=== PATIENT | female | born 1990 | race Caucasian/White ===

== ENCOUNTER 2020-07-02 08:31 | Emergency (ER) | payer MEDICAID ==
[~2020-07-02] VITALS: Ht 157.5 cm; Wt 160.0 kg
[2020-07-02 08:36] VITALS: BP 112/75
[2020-07-02] MEDS ORDERED: diazepam 5mg tablet PO ONE (09:10)
[2020-07-02] MEDS ORDERED: ketorolac tromethamine 15mg/ml inj. IM ONE (09:10)
--- NOTE | 2020-07-02 09:18 | NUR ---
PT AMBULATED TO THE BATHROOM WITH A STEADY GAIT.
== END 2020-07-02 10:00 | disposition home or self-care (01) ==
LOC: ER 08:32
DX: M54.5 Low back pain (principal); M62.838 Other muscle spasm; G89.29 Other chronic pain; F17.200 Nicotine dependence, unspecified, uncomplicated
CPT/HCPCS: 96372; 99283; J1885

== ENCOUNTER 2020-08-27 12:31 | Emergency (ER) | payer MEDICAID ==
[~2020-08-27] VITALS: Ht 157.5 cm; Wt 75.0 kg
[2020-08-27] MEDS ORDERED: ketorolac trometh. 30mg/ml inj. IM ONE (13:05)
[2020-08-27] MEDS ORDERED: CYCL-1 PO (13:10)
[2020-08-27 13:30] VITALS: BP 122/82
== END 2020-08-27 13:23 | disposition home or self-care (01) ==
LOC: ER 12:32
DX: M54.2 Cervicalgia (principal); M25.511 Pain in right shoulder; M54.5 Low back pain; G89.29 Other chronic pain; Z88.2 Allergy status to sulfonamides; Z79.899 Other long term (current) drug therapy
CPT/HCPCS: 96372; 99283; J1885

== ENCOUNTER 2024-12-12 09:26 | Emergency (ER) | payer MEDICAID ==
[~2024-12-12] VITALS: Ht 157.5 cm; Wt 88.4 kg
[~2024-12-12 09:26] MED LIST: CYCL-1 PO
[2024-12-12 09:32] VITALS: BP 118/85; PULSE 86; RESP 16; TEMP 98.8; O2SAT 97
--- NOTE | 2024-12-12 09:38 | Physician Documentation ---
History of Present Illness ~ Chief Complaint: Cold, cough & congestion Stated Complaint: FLU SYMPTOMS Time Seen by MD: 09:38 Primary Medical Doctor: OSCAR CLINE HPI 34-year-old female who presents for four days of viral symptoms that include cough, fatigue, nasal congestion, ear pain, right worse than left. Medication Reconciliation Allergies: Coded Allergies: Sulfa (Sulfonamide Antibiotics) (Verified Allergy, Unknown, NAUSEA, 08/27/20) Scheduled Amox Tr/Potassium Clavulanate (Augmentin 875-125 Tablet), 1 TAB PO Q12H Cyclobenzaprine* (Cyclobenzaprine*), 1 TAB PO Q8H Guaifenesin (Mucinex), 1 TAB PO Q12H Sodium Chloride (Saline Nasal [place]), 1 SPRAYS BOTHNARES Q6H Past Medical History Past Medical History: Chronic Back Pain Past Surgical History: noncontributory Alcohol Use: None Drug Use: none Lives In: Home Review of Systems ROS As stated above in the HPI, otherwise all systems are reviewed and negative. Physical Exam Vital Signs: Temperature: 98.8, Source: Oral, Heart Rate: 86, Respiratory Rate: 16, BP: 118/85, Pulse Oximetry: 97, Weight: 88.400 Oxygen Flow Rate: 0 Physical Exam General: Alert, no apparent distress. HEENT: PERRL, EOMI, no injection, moist mucous membranes. Canals are clear. Right TM erythematous. Neck: Full range of motion. Respiratory: Lungs clear, no respiratory distress. Chest: No accessory muscle use. Cardiovascular: Regular rate and rhythm, no murmurs. Gastrointestinal: Soft, nontender, nondistended. Bowels sounds present. Extremities: Normal range of motion, no deformity. Neurologic: Oriented x4. Psychiatric: Normal mood and affect. Skin: Normal color, warm and dry. No edema, no ecchymosis. Progress Results/Orders Results/Orders Vital Signs 12/12/24 09:32 Temp 98.8 Pulse 86 Resp 16 B/P (MAP) 118/85 Pulse Ox 97 O2 Flow Rate 0 Medical Decision Making Differential Diagnosis This appears to be a viral process, but she does have signs of early ear infection. Discussed with the patient that these are most likely viral, that she should not start the antibiotics unless she gets worse rather than better. She is to follow up with the primary care provider return if worse. The mainstay of her treatment at this time is mucinex and nasal saline. Departure Time of Disposition: 10:33 Disposition: 01 HOME / SELF CARE / HOMELESS Impression: Primary Impression: Acute respiratory infection Additional Impression: Otitis media Condition: Stable Discharge Instructions: Otitis Media, Adult, Upper Respiratory Infection, Adult Additional Instructions: Viral infection, but you do also have early ear infection. This itself may also be viral. If you are not better in the next three days, or feel worse with any fever in the next couple of days, go ahead and start the antibiotics. The mainstay of the treatment is the Mucinex in the nasal saline. Return if worse, otherwise follow up with primary care provider Referrals: NO PRIMARY CARE PROVIDER (PCP) Prescriptions Sodium Chloride (Saline Nasal [place]) 0.65 % [place] 1 SPRAYS BOTHNARES Q6H for 7 Days, #60 ML 0 Refills Prov: BRIGIDO BRADFORD NP 12/12/24 Guaifenesin (Mucinex) 1,200 Mg Tbbp.12hr 1 TAB PO Q12H for cough for 15 Days, #30 TAB 0 Refills Prov: BRIGIDO BRADFORD NP 12/12/24 Amox Tr/Potassium Clavulanate (Augmentin 875-125 Tablet) 1 Each Tablet 1 TAB PO Q12H for 7 Days, #14 TAB Prov: BRIGIDO BRADFORD NP 12/12/24 Education Educated: Patient, Family Educated regarding: diagnosis, treatment, prognosis, need for follow up Signature Scribe Signature: No scribe Attestation: The note accurately reflects work and decisions made by me.Brigido Wells NP 12/12/24 11:24 BRIGIDO BRADFORD NP Dec 12, 2024 09:38
[2024-12-12] MEDS ORDERED: GUAI120015 PO (10:34)
[2024-12-12] MEDS ORDERED: AMOX-117 PO (10:34)
[2024-12-12] MEDS ORDERED: SODI30SP3 BOTHNARES (10:34)
== END 2024-12-12 10:54 | disposition home or self-care (01) ==
LOC: ER 09:27
DX: J22 Unspecified acute lower respiratory infection (principal); H66.93 Otitis media, unspecified, bilateral; Z88.2 Allergy status to sulfonamides; Z79.899 Other long term (current) drug therapy
CPT/HCPCS: 99283

== ENCOUNTER 2024-12-14 12:10 | Emergency (ER) | payer MEDICAID ==
[~2024-12-14] VITALS: Ht 157.5 cm; Wt 94.0 kg
[~2024-12-14 12:10] MED LIST changes: +AMOX-117 PO; +GUAI120015 PO; +SODI30SP3 BOTHNARES
--- NOTE | 2024-12-14 13:21 | RADIOLOGY REPORT ---
DI CHEST,SINGLE VIEW, HISTORY: ccc COMPARISON: None None TECHNICAL DATA: 1 view of the chest was obtained. FINDINGS: Lines and tubes: None Cardiomediastinal silhouette: normal Pulmonary vasculature: normal Lung expansion: normal Lung airspace: normal Lung interstitium: normal Pleura: normal Pneumothorax: no Bones: Unremarkable Other: no IMPRESSION: No acute intrathoracic abnormality.
--- NOTE | 2024-12-14 14:31 | Physician Documentation ---
History of Present Illness ~ Chief Complaint: Dizziness Stated Complaint: DIZZINESS Time Seen by MD: 12:41 Primary Medical Doctor: OSCAR CLINE HPI 34-year-old female returns to the ED with ongoing complaints of general malaise weakness and cough. He was recently seen here prescribed Augmentin and guaifenesin however she has yet to take those medications for unknown reasons been afebrile and has a ongoing bacterial bronchitis like symptoms Day of Onset: Dec 14, 2024 Medication Reconciliation Allergies: Coded Allergies: Sulfa (Sulfonamide Antibiotics) (Verified Allergy, Unknown, NAUSEA, 08/27/20) Scheduled Amox Tr/Potassium Clavulanate (Augmentin 875-125 Tablet), 1 TAB PO Q12H Cyclobenzaprine* (Cyclobenzaprine*), 1 TAB PO Q8H Guaifenesin (Mucinex), 1 TAB PO Q12H Prednisone (Prednisone), 1 TAB PO BID Sodium Chloride (Saline Nasal [place]), 1 SPRAYS BOTHNARES Q6H Scheduled PRN albuterol inhaler (Pro-Air Inhaler), 2 PUFFS INH Q4HPRN PRN for wheezing Past Medical History Past Medical History: Chronic Back Pain Past Surgical History: noncontributory Alcohol Use: None Drug Use: none Lives In: Home Review of Systems All Other Systems at this time: Reviewed and Negative ROS As stated above in the HPI, otherwise all systems are reviewed and negative. Physical Exam Vital Signs: Temperature: 98.4, Source: Oral, Heart Rate: 66, Respiratory Rate: 15, BP: 110/55, Pulse Oximetry: 96, Weight: 94.000 Oxygen Flow Rate: 0 Physical Exam General: Alert, no apparent distress. Respiratory: Lungs clear, no respiratory distress. Chest: No accessory muscle use. Cardiovascular: Regular rate and rhythm, no murmurs. Neurologic: Oriented x4. Psychiatric: Normal mood and affect. Skin: Normal color, warm and dry. No edema, no ecchymosis. Progress Results/Orders Results/Orders Vital Signs 12/14/24 12/14/24 12/14/24 12:11 12:16 14:50 Temp 98.4 98.0 Pulse 69 66 66 Resp 16 15 16 B/P (MAP) 110/55 110/55 (73) 113/73 Pulse Ox 96 96 97 O2 Flow Rate 0 Medical Decision Making Findings Denies patient to start taking her antibiotics and guaifenesin to help with her bronchitis also presscribinh an inhaler and prednisone Differential Dx:Considerations: Include: Allergic rhinitis, Influenza, Otitis media, Peritonsillar abscess, Pharyngitis-Diphtheria, Pharyngitis-Streptoccal, Pharyngitis-Viral, Pneumonia, Pnuemonitis, Sinusitis, URI, Other Departure Disposition: HOME / SELF CARE / HOMELESS Impression: Primary Impression: Bronchitis Additional Impressions: Dizziness Dehydration Condition: Improved Discharge Instructions: Acute Bronchitis, Adult, [id number] Additional Instructions: Take all of the prescribed medication that you were provided. Referrals: NO PRIMARY CARE PROVIDER (PCP) Prescriptions albuterol inhaler (Pro-Air Inhaler) 8.5 Gm Inhaler 2 PUFFS INH Q4HPRN PRN for wheezing for 30 Days, #18 GM Prov: HEMAL MCGHEE NP 12/14/24 Prednisone (Prednisone) 10 Mg Tablet 1 TAB PO BID for 5 Days, #10 TAB Prov: HEMAL MCGHEE NP 12/14/24 Education Educated: Patient Educated regarding: diagnosis Signature Scribe Signature: renata Attestation: Scribed for Hemal Mcghee Tennis Court Attendant by Hemal Wells NP . 12/14/24 18:28 HEMAL MCGHEE NP Dec 14, 2024 14:31
[2024-12-14] MEDS ORDERED: PRED10TA23 PO (14:33)
[2024-12-14] MEDS ORDERED: ALBU8HFA INH (14:34)
[2024-12-14 14:50] VITALS: BP 113/73; PULSE 66; RESP 16; TEMP 98; O2SAT 97
== END 2024-12-14 14:52 | disposition home or self-care (01) ==
LOC: ER 12:11
DX: J40 Bronchitis, not specified as acute or chronic (principal); R42 Dizziness and giddiness; E86.0 Dehydration; Z88.2 Allergy status to sulfonamides; Z88.8 Allergy status to other drugs, medicaments and biological substances
CPT/HCPCS: 71045; 99283

== ENCOUNTER 2025-01-11 06:59 | Emergency (ER) | payer MEDICAID ==
[~2025-01-11] VITALS: Ht 157.5 cm; Wt 90.7 kg
[~2025-01-11 06:59] MED LIST changes: +ALBU8HFA INH; -AMOX-117 PO; +PRED10TA23 PO
[2025-01-11 07:08] VITALS: BP 125/94; PULSE 71; TEMP 97; O2SAT 98
--- NOTE | 2025-01-11 09:17 | Physician Documentation ---
History of Present Illness ~ Chief Complaint: Back Pain Stated Complaint: NECK PAIN Time Seen by MD: 09:02 OK to notify your PCP?: Yes Primary Medical Doctor: OSCAR CLINE Source: patient Mode of Arrival: POV Exam Limitations: no limitations HPI 34-year-old female presents with right neck pain and tightness since yesterday. She states that it is slightly better than yesterday. She does have some radiation down her spine which then wraps around her ribcage. She states that that happened secondary after her neck because she believes she was holding it in a weird position and strained then her thoracic spine. She has not tried any medications or heating pad at home for her pain. She has a history of breaking her lumbar spine but states that this feels completely different. There was no trauma or falls associated with the pain. Medication Reconciliation Allergies: Coded Allergies: Sulfa (Sulfonamide Antibiotics) (Verified Allergy, Unknown, NAUSEA, 12/24/24) Scheduled Cyclobenzaprine* (Cyclobenzaprine*), 1 TAB PO Q8H Guaifenesin (Mucinex), 1 TAB PO Q12H Prednisone (Prednisone), 1 TAB PO BID Sodium Chloride (Saline Nasal [place]), 1 SPRAYS BOTHNARES Q6H Scheduled PRN albuterol inhaler (Pro-Air Inhaler), 2 PUFFS INH Q4HPRN PRN for wheezing Discontinued Medications Amoxicillin Trihydrate* (Amoxicillin*), 1 CAP PO Q12H Discontinued Reason: Auto Discontinued Past Medical History Past Medical History: Chronic Back Pain Past Surgical History: noncontributory Smoking Status: Current every day smoker Alcohol Use: None Drug Use: none Lives In: Home Review of Systems All Other Systems at this time: Reviewed and Negative Physical Exam Physical Exam Vital Signs: RN Vital Signs have been reviewed: Yes, Temperature: 97.0, Source: Oral, Heart Rate: 71, Respiratory Rate: 18, BP: 125/94, Pulse Oximetry: 98, Weight: 90.700 Pulse Oximetry Reflects: adequate oxygenation Physical Exam General: Alert, no distress. HEENT: No injection, moist mucous membranes. Posterior pharynx normal. Bilateral TM clear. Neck: Full range of motion. No cervical lymphadenopathy. Respiratory: No respiratory distress, equal chest rise and fall. Chest: No accessory muscle use. Cardiovascular: Regular rate and rhythm. Gastrointestinal: Nondistended. Extremities: Normal range of motion, no deformity. Back: No midline tenderness in cervical/thoracic/lumbar spine. Tenderness to palpation of left trapezius muscle and no tenderness to palpation of bilateral latissimus dorsi muscle. Limited range motion in neck due to muscle tightness. Neurologic: Oriented x4. Psychiatric: Normal mood and affect. Skin: Normal color, warm and dry. Progress Results/Orders Reviewed/noted all lab results: Yes Results/Orders Completed Orders - VALERIA FRAZIER Tizanidine Tablet (Zanaflex Tablet) (01/11/25 09:20) Lidocaine 5% Patch (Lidoderm 5% Patch) (01/11/25 09:20) Ketorolac Trometh 15mg/Ml Vial (Toradol (01/11/25 09:20) Medications Received in ER Medications (Trade) Dose Ordered Sig/Lisa Route PRN Reason Start Time Stop Time Status Last Admin Dose Admin (Zanaflex tablet) 4 mg ONCE ONCE PO 01/11/25 09:20 01/11/25 09:22 DC 01/11/25 09:31 4 MG (Lidoderm 5% Patch) 1 patch ONCE ONCE TP 01/11/25 09:20 01/11/25 09:22 DC 01/11/25 09:34 1 PATCH (Toradol injection) 15 mg ONCE ONCE IM 01/11/25 09:20 01/11/25 09:22 DC 01/11/25 09:33 15 MG Vital Signs 01/11/25 01/11/25 07:08 09:33 Temp 97.0 Pulse 71 Resp 18 16 B/P (MAP) 125/94 Pulse Ox 98 Medical Decision Making Additional info obtained from: old records Findings 34-year-old female with cervical neck spasm since yesterday. She has not tried any medications at home. She yesterday was having some numbness and tingling down both of her arms but that has resolved today. She does have some improvement from yesterday in a little bit more range of motion but is still having a very tight neck. There was no injuries or trauma associated with this. I prescribed Zanaflex, Toradol and lidocaine patch while here in the department. She has no loss of bowel or bladder. She has no midline tenderness. she should use a heating pad 20 minutes on 20 minutes off at home to help relax the muscle. Sent a prescription for lidocaine patch, Zanaflex and naproxen to her pharmacy. Differential Dx:Considerations: Include: Pyelonephritis Differential Diagnosis Cervical fracture, thoracic fracture, meningitis, upper respiratory infection. Departure Disposition: 01 HOME / SELF CARE / HOMELESS Impression: Primary Impression: Cervical muscle pain Condition: Stable Discharge Instructions: Acute Back Pain, Adult Additional Instructions: Use a heating pad, 20 minutes on 20 minutes off to help relax his muscles. May benefit from massage therapy. With her primary care provider within the next week and return back here for any new or worsening symptoms. Referrals: NO PRIMARY CARE PROVIDER (PCP) Prescriptions Naproxen (Naproxen) 500 Mg Tablet 1 TAB PO Q12H, #20 TAB Prov: VALERIA FRAZIER 01/11/25 Lidocaine (Lidocaine) 5 % Adh..patch 1 PATCH TOP DAILY for 30 Days, #30 PATCH 0 Refills Prov: VALERIA FRAZIER 01/11/25 Tizanidine Hcl (ZANAFLEX) 4 Mg Tablet 1 TAB PO HS for 30 Days, #30 TAB 0 Refills Prov: VALERIA FRAZIER 01/11/25 Education Educated: Patient Educated regarding: diagnosis, treatment, prognosis, need for follow up Additional Comment Medical Screen Exam This patient recieved a medical screening examination. After reviewing the individual's medical complaints with presenting symptoms and performing an appropriate physical examination, it was determined that no immediate life- threatening emergency medical condition is present. This individual is also not a women having contractions. Signature Scribe Signature: . Attestation: Scribed for Valeria Frazier by Valeria Wells NP . 01/11/25 10:04 Parts of this note were created using [employer] voice recognition software program. While efforts were made to correct any mistakes made by this voice recognition software program, nonsensical phrases may remain in this note. In addition, there may be errors and syntax, grammar, content and spelling. VALERIA FRAZIER Jan 11, 2025 09:17
[2025-01-11 09:33] VITALS: RESP 16
[2025-01-11] MEDS: ketorolac trometh 15mg/ml vial 15 MG/ML ML IM ONE (09:33)
[2025-01-11] MEDS ORDERED: TIZA4TAB11 PO (10:03)
[2025-01-11] MEDS ORDERED: LIDO700A47 TOP (10:03)
[2025-01-11] MEDS ORDERED: NAPR-56 PO (10:03)
== END 2025-01-11 10:08 | disposition home or self-care (01) ==
LOC: ER 07:00
DX: M54.2 Cervicalgia (principal); F17.200 Nicotine dependence, unspecified, uncomplicated; Z88.2 Allergy status to sulfonamides; Z88.8 Allergy status to other drugs, medicaments and biological substances
CPT/HCPCS: 96372; 99283; J1885

== ENCOUNTER 2025-02-15 08:44 | Emergency (ER) | payer MEDICAID ==
[~2025-02-15] VITALS: Ht 157.5 cm; Wt 90.8 kg
[~2025-02-15 08:44] MED LIST changes: +LIDO700A47 TOP; +TIZA4TAB11 PO
--- NOTE | 2025-02-15 10:16 | Physician Documentation ---
History of Present Illness ~ Chief Complaint: Abdominal Pain Stated Complaint: ABD PAIN Time Seen by MD: 10:06 Primary Medical Doctor: OSCAR CLINE HPI 34 Year old female presents to the ED after being injured three weeks ago. She states she has has a previous lumbar fracture playing with a child who in his up jumping on the upper part of her back when the patient felt a crack and then has had increased pain in the subsequent days she denies any incontinence numbness or tingling in her leg she does report numbness in her bilateral gluteus denies Fevers. She states that the pain is now radiating to the anterior in her pelvic region. Said the lumbar pain is central in does not differentiate Day of Onset: Feb 15, 2025 Medication Reconciliation Allergies: Coded Allergies: Sulfa (Sulfonamide Antibiotics) (Verified Allergy, Unknown, NAUSEA, 12/24/24) Scheduled Cyclobenzaprine HCl (Cyclobenzaprine HCl), 1 TAB PO Q8H Cyclobenzaprine* (Cyclobenzaprine*), 1 TAB PO Q8H Guaifenesin (Mucinex), 1 TAB PO Q12H Lidocaine (Lidocaine), 1 PATCH TOP DAILY Naproxen (Naproxen), 1 TAB PO Q12H Prednisone (Prednisone), 1 TAB PO BID Sodium Chloride (Saline Nasal [place]), 1 SPRAYS BOTHNARES Q6H Tizanidine Hcl (Zanaflex), 1 TAB PO HS Scheduled PRN albuterol inhaler (Pro-Air Inhaler), 2 PUFFS INH Q4HPRN PRN for wheezing Discontinued Medications Naproxen (Naproxen), 1 TAB PO Q12H Discontinued Reason: Auto Discontinued Past Medical History Past Medical History: Chronic Back Pain Past Surgical History: noncontributory Alcohol Use: None Drug Use: none Lives In: Home Review of Systems All Other Systems at this time: Reviewed and Negative ROS As stated above in the HPI, otherwise all systems are reviewed and negative. Physical Exam Physical Exam Vital Signs: Temperature: 97.9, Source: Temporal, Heart Rate: 84, Respiratory Rate: 18, BP: 113/88, Pulse Oximetry: 97, Weight: 90.800 Oxygen Flow Rate: 0 Physical Exam General: Alert, no apparent distress. back: Tender to the lumbar region via palpation, negative CVA tenderness Respiratory: Lungs clear, no respiratory distress. Cardiovascular: Regular rate and rhythm, no murmurs. Gastrointestinal: Soft, nontender, nondistended. Bowels sounds present. Neurologic: Oriented x4. Psychiatric: Normal mood and affect. Skin: Normal color, warm and dry. No edema, no ecchymosis. Progress Results/Orders Results/Orders Orders - HEMAL MCGHEE FRYER OPERATOR Urinalysis, Cult If Indicated (02/15/25 09:25) Hcg, Ur Ql (02/15/25 09:25) Lumbar Spine Complte (02/15/25 10:13) Completed Orders - HEMAL MCGHEE FRYER OPERATOR Cbc/Diff (02/15/25 09:25) BMP (02/15/25 09:25) Lipase (02/15/25 09:25) CMP (02/15/25 09:25) Lumbar Spine Complte (02/15/25 10:13) Ketorolac Trometh 30mg/Ml Vial (Toradol (02/15/25 10:55) Cyclobenzaprine Tablet (Flexeril Tablet) (02/15/25 10:55) Medications Received in ER Medications (Trade) Dose Ordered Sig/Lisa Route PRN Reason Start Time Stop Time Status Last Admin Dose Admin (Toradol inj. 30mg/ml) 30 mg ONCE ONCE IM 02/15/25 10:55 02/15/25 10:56 DC 02/15/25 11:15 30 MG (Flexeril tablet) 10 mg ONCE ONCE PO 02/15/25 10:55 02/15/25 10:56 DC 02/15/25 11:15 10 MG Vital Signs 02/15/25 02/15/25 02/15/25 08:54 11:00 11:04 Temp 97.9 Pulse 84 71 Resp 18 16 B/P (MAP) 113/88 129/101 (110) Pulse Ox 97 98 O2 Flow Rate 0 0 Laboratory Tests Test 02/15/25 09:49 White Blood Count 7.9 Red Blood Count 4.66 Hemoglobin 14.3 Hematocrit 41.6 Mean Corpuscular Volume 89.3 Mean Corpuscular Hemoglobin 30.8 Mean Corpuscular Hemoglobin Concent 34.4 Red Cell Distribution Width 12.9 Platelet Count 261 Mean Platelet Volume 8.3 Neutrophils (%) (Auto) 62.3 Lymphocytes (%) (Auto) 27.8 Monocytes (%) (Auto) 5.6 Eosinophils (%) (Auto) 3.9 Basophils (%) (Auto) 0.4 Neutrophils # (Auto) 4.9 Lymphocytes # (Auto) 2.2 Monocytes # (Auto) 0.4 Eosinophils # (Auto) 0.3 Basophils # (Auto) 0.0 CBC Comment Sodium Level 138 Potassium Level 4.0 Chloride Level 103 Carbon Dioxide Level 29.0 Anion Gap 6 L Blood Urea Nitrogen 9 Creatinine 0.86 Estimated GFR/1.73 m2 75 BUN/Creatinine Ratio 10.5 Glucose Level 89 Calcium Level 8.7 Total Bilirubin 0.5 Aspartate Amino Transf (AST/SGOT) 22 Alanine Aminotransferase (ALT/SGPT) 39 Alkaline Phosphatase 81 Total Protein 7.7 Albumin 3.7 Globulin 4.0 Albumin/Globulin Ratio 0.9 L Lipase 23 Chemistry Comments Medical Decision Making Findings This patient reported improved symptoms after receiving Toradol and cyclobenzaprine her laboratory values were reassuring no signs of infection. Based on her nonspecific symptoms and improved status at this time I feel it is prudent to discharge with a close follow up instructions. Differential Dx:Considerations: Include: AAA, Aortic dissection, , Appendicitis, Bowel obstruction, Cholelithiasis, Cholangitis, DJD, Ectopic , Fracture, Hepatitis, HNP, Musculoskeletal pain, Pancreatitis, Pyelonephritis, Strain, Urinary obstruction, Urolithiasis, Ovarian torsion, Other Departure Disposition: 01 HOME / SELF CARE / HOMELESS Impression: Primary Impression: Back muscle spasm Additional Impressions: Low back pain Abdominal pain Condition: Stable Discharge Instructions: Lumbar Sprain Additional Instructions: if your symptoms worsen ,please return to the ED. you may benefit from physical therapy referral from your primary care if your symptoms persist Referrals: NO PRIMARY CARE PROVIDER (PCP) Prescriptions Naproxen (Naproxen) 500 Mg Tablet 1 TAB PO Q12H, #20 TAB Prov: HEMAL MCGHEE FRYER OPERATOR 02/15/25 Cyclobenzaprine HCl (Cyclobenzaprine HCl) 10 Mg Tablet 1 TAB PO Q8H for muscle spasms for 10 Days, #30 TAB Prov: HEMAL MCGHEE FRYER OPERATOR 02/15/25 Signature Scribe Signature: g Attestation: Scribed for Hemal Mcghee Child Nutrition Assistant by Hemal Wells NP . 02/15/25 11:35 HEMAL MCGHEE NP Feb 15, 2025 10:16
[2025-02-15 10:30] LABS: MEAN PLATELET VOLUME 8.3 FL (7.4-10.4); RED CELL DISTRIBUTION WIDTH 12.9 % (11.5-14.5)
--- NOTE | 2025-02-15 10:40 | RADIOLOGY REPORT ---
DI LUMBAR SPINE COMPLTE, HISTORY: acute back injury COMPARISON: None TECHNICAL DATA: Frontal and lateral views were obtained of the lumbar spine as well as bilateral obli que views . FINDINGS: There are 6 lumbar type vertebral bodies. Leftward curvature of the lumbar spine. There is no spondyl olisthesis. Vertebral body heights are maintained. Disk heights are normal. The facet joints appear n ormal. The sacroiliac joints are symmetric. Paraspinal soft tissues are within normal limits. IMPRESSION: No acute fracture or dislocation of the lumbar spine.
[2025-02-15 10:49] LABS: CREATININE 0.86 MG/DL (0.40-0.90); TOTAL CARBON DIOXIDE 29.0 MMOL/L (24-32); eCRCL 72 ML/MIN; eGFR 75 ML/MIN
[2025-02-15] MEDS: ketorolac trometh 30MG/ML vial 30 MG/ML VIAL IM ONE (11:15)
[2025-02-15] MEDS ORDERED: CYCL-394 PO (11:35)
[2025-02-15] MEDS ORDERED: NAPR-56 PO (11:35)
[2025-02-15 12:24] LABS: LEUKOCYTE ESTERASE ,URINE NEGATIVE (Neg); NITRITES, URINE NEGATIVE (Neg); OCCULT BLOOD,URINE LARGE (Neg)
[2025-02-15 12:25] LABS: URINE HCG NEGATIVE (NEG)
[2025-02-15 12:27] LABS: UA COLLECTION TYPE CLN CATCH MIDSTREAM
[2025-02-15 12:29] LABS: AMORPHOUS URATES 2+; MUCUS STRANDS NONE SEEN /LPF (Neg); SQUAMOUS EPITHELIAL CELL,UR FEW /LPF (FEW)
[2025-02-15 12:36] VITALS: BP 115/85; PULSE 65; RESP 18; TEMP 97.9; O2SAT 99
== END 2025-02-15 12:35 | disposition home or self-care (01) ==
LOC: ER 08:44
DX: M62.830 Muscle spasm of back (principal); M54.50 Low back pain, unspecified; R10.9 Unspecified abdominal pain; G89.29 Other chronic pain; Z88.2 Allergy status to sulfonamides; Z79.899 Other long term (current) drug therapy
CPT/HCPCS: 36415; 72110; 80053; 81001; 81025; 83690; 85025; 96372; 99285; J1885